=== PATIENT | female | born 1945 | race African-American/Black ===

== ENCOUNTER 2021-06-28 10:18 | Day surgery (SDC) | payer MEDICARE ==
[2021-06-28] MEDS ORDERED: Lidocaine 1% PF 5 ML VIAL ONE ×2 (10:58→11:24)
[2021-06-28] MEDS ORDERED: Sodium Bicarbonate 2.5 MEQ/5 ML VIAL ONE ×2 (10:58→11:24)
[2021-06-28 13:19] VITALS: BP 153/67; TEMP 97.8
== END 2021-06-28 12:15 | disposition home or self-care (01) ==
LOC: CSHULT 10:18
PROVIDERS: ATTEND Specialist
DX: E04.1 Nontoxic single thyroid nodule (principal)
CPT/HCPCS: 60100; 76942; 88173; 88305